=== PATIENT | male | born 1995 | race Two or more races ===

== ENCOUNTER 2018-11-28 04:03 | Emergency (ER) | payer SELFPAY ==
[2018-11-28] MEDS ORDERED: ACETAMINOPHEN 500 MG TABLET (FP) PO ONE (04:47)
[2018-11-28 04:49] VITALS: BP 122/88; PULSE 78; TEMP 98.1; BMI 18.3
--- NOTE | 2018-11-28 04:51 | PDOC ---
History of Present Illness - General Chief Complaint: Cold Symptoms Stated Complaint: SINUS,CHEST,THROAT PAIN Time Seen by Provider: 11/28/18 04:16 - History of Present Illness Initial Comments: Mr. Nava is a 23 y/o male with hx of spontaneous pneumothorax presenting today with nasal congestion, cough, and chest tightness. Reports that the nasal congestion started 3 days ago while he was in [place]. Reports coughing over the past day and subsequent chest tightness. Reports 1 day of fever that has resolved. Denies nausea/vomiting/hemoptysis. Denies abdominal pain or shortness of breath. Denies headache/dizziness. Past History - Past Medical History Allergies/Adverse Reactions: Allergies Allergy/AdvReac Type Severity Reaction Status Date / Time No Known Drug Allergies Allergy Verified 03/04/16 13:10 seafood Allergy Severe anaphylaxis Uncoded 03/04/16 13:10 Home Medications: Ambulatory Orders NK [No Known Home Medication] 11/28/18 COPD: No Other medical history: Pneumothorax - Suicide/Smoking/Psychosocial Hx Smoking Status: No Smoking History: Never smoked Have you smoked in the past 12 months: No Number of Cigarettes Smoked Daily: 1 If you are a former smoker, when did you quit?: 2014 Hx Alcohol Use: Yes (Social) Drug/Substance Use Hx: No Substance Use Type: None Review of Systems - Review of Systems Comments:: GENERAL/CONSTITUTIONAL: No fever or chills. No weakness._ HEAD, EYES, EARS, NOSE AND THROAT: No change in vision. No change in hearing. No sore throat. Reports runny nose. CARDIOVASCULAR: Reports chest pressure. Denies shortness of breath_ RESPIRATORY: Reports cough, denies hemoptysis_ GASTROINTESTINAL: No nausea, vomiting, diarrhea or constipation._ GENITOURINARY: No dysuria, frequency, or change in urination._ MUSCULOSKELETAL: No joint or muscle swelling or pain. No neck or back pain._ SKIN: No rash_ NEUROLOGIC: No headache, vertigo, loss of consciousness, or change in strength/ sensation._ ENDOCRINE: No increased thirst. No abnormal weight change_ HEMATOLOGIC/LYMPHATIC: No anemia, easy bleeding, or history of blood clots._ ALLERGIC/IMMUNOLOGIC: No hives or skin allergy._ *Physical Exam - Vital Signs Last Vital Signs Temp Pulse Resp BP Pulse Ox 98.1 F 78 19 122/88 100 11/28/18 04:24 11/28/18 04:24 11/28/18 04:24 11/28/18 04:24 11/28/18 04:24 - Physical Exam Comments: GENERAL: Awake, alert, and oriented to person/place/time, in no acute distress_ HEAD: No signs of trauma, normocephalic, atraumatic _ EYES: PERRLA, EOMI, sclera anicteric, conjunctiva clear_ ENT: Hearing grossly normal, nares patent, oropharynx clear without exudates. No uvular deviation. Moist mucosa_ NECK: Normal ROM, supple, no lymphadenopathy, JVD, or masses_ LUNGS: No distress, speaks in full sentences, clear to auscultation bilaterally _ HEART: Regular rate and rhythm, normal S1 and S2, no murmurs appreciated, peripheral pulses normal and equal bilaterally._ ABDOMEN: Soft, nontender, normoactive bowel sounds. No guarding, no rebound. No masses_ EXTREMITIES: Normal inspection, Normal range of motion, no edema. No clubbing or cyanosis_ NEUROLOGICAL: Cranial nerves II through XII grossly intact. Normal speech, normal gait, no focal sensorimotor deficits _ SKIN: Warm, Dry, normal turgor, no rashes or lesions noted_ ED Treatment Course - RADIOLOGY Radiology Studies Ordered: Category Date Time Status CHEST PA & LAT [RAD] Stat Radiology 11/28/18 04:46 Ordered Medical Decision Making - Medical Decision Making 23M, hx of pneumothorax, presenting with 3 days of rhinorrhea, 2 days of cough followed by chest discomfort. Obtain CXR given hx of pneumo. 11/28/18 05:08 CXR does not show any signs of pneumothorax or pneumonia. Plan to d/c home with OTC motrin for symptomatic relief. F/u PCP as needed. *DC/Admit/Observation/Transfer Diagnosis at time of Disposition: URI (upper respiratory infection) Qualifiers: URI type: unspecified URI Qualified Code(s): J06.9 - Acute upper respiratory infection, unspecified - Discharge Dispostion Disposition: HOME Condition at time of disposition: Stable - Referrals - Patient Instructions Printed Discharge Instructions: DI for Viral Upper Respiratory Infection -- Adult, DI for Common Cold Additional Instructions: Please take Motrin over the counter as needed for your symptoms (follow instructions on the package). Please make an appointment to follow up with your primary care physician as needed. If you experience any new, worsening, or concerning symptoms, including high fever, severe chest pain, shortness of breath, or any other concerns, please return to the emergency room. - Post Discharge Activity
[2018-11-28] MEDS ORDERED: ACETAMINOPHEN 325 MG TABLET (FP) ONE (04:52)
[2018-11-28] MEDS ORDERED: IBUPROFEN 600 MG TABLET (FP) PO ONE ×2 (04:53→04:54)
--- NOTE | 2018-11-28 05:04 | PDOC ---
Attending Attestation - Resident Resident Name: Negro Fernandez - HPI HPI: 11/28/18 05:01 23m hx spontaneous PTX years ago presents with cough, CP And SOB. Pt developed congestion, cough, and a sore throat 3 days ago while on vacation in [place]. This evening had worsening cough and chest pressure and became concerned he might have a pneumothorax again. No fevers. Vomited x 1. - Physicial Exam PE: 11/28/18 05:03 supine in stretcher sleeping quietly nasal congestion mmm tonsillar erythema, no exudates rrr s1 s2 no mrg ctab no wheezes rales rhonchi soft nt nd - Medical Decision Making 11/28/18 05:04 likely Viral URI afeb vss CXR to r/o ptx motrin prn discomfort dispo per CXR
== END 2018-11-28 05:20 | disposition home or self-care (01) ==
LOC: JER 04:03
DX: J06.9 Acute upper respiratory infection, unspecified (principal)
CPT/HCPCS: 71046-TC-FY; 99281-25

== ENCOUNTER 2019-01-21 08:56 | Emergency (ER) | payer SELFPAY ==
[2019-01-21 09:08] VITALS: BP 116/50; PULSE 83; TEMP 98.4; BMI 17.6
--- NOTE | 2019-01-21 09:14 | PDOC ---
History of Present Illness - General Chief Complaint: Cold Symptoms Stated Complaint: cough Time Seen by Provider: 01/21/19 09:06 - History of Present Illness Initial Comments: 01/21/19 09:14 CHIEF COMPLAINT: cough, chest pain HISTORY OF PRESENT ILLNESS: 23 yo M with hx of spontaneous pneumothorax (2014) presents to fast track with cough and chest discomfort. Patient reports 2 weeks of chest discomfort accompanied by a cough since 2 days ago, with hemoptysis last night. Denies any fever, chills, night sweats. Denies recent travel, surgery, or hormone use. No recent travel or sick contacts. PAST MEDICAL HISTORY: pneumothorax FAMILY HISTORY: Denies SOCIAL HISTORY: Former smoker, "quit after lung surgery in 2017". Reports smoking hookah and marijuana in the last few weeks. Denies alcohol, illicit drug use. SURGICAL HISTORY: chest tube placement 2014, thoracic surgery (wedge resection) 2016 ALLERGIES: seafood REVIEW OF SYSTEMS General/Constitutional: Denies fever, chills, night sweats. Denies weakness, weight change. HEENT: Denies change in vision. Denies ear pain or discharge. Denies sore throat. Cardiovascular: Shortness of breath x 2 weeks. Respiratory: Coughing x 2 days, hemoptysis last night. Gastrointestinal: Denies nausea, vomiting, diarrhea or constipation. Denies rectal bleeding. Genitourinary: Denies dysuria, frequency, or change in urination. Musculoskeletal: Denies joint or muscle swelling or pain. Denies neck or back pain. Skin and breasts: Denies rash or easy bruising. Neurologic: Denies headache, vertigo, loss of consciousness, or loss of sensation. Psychiatric: Denies depression or anxiety. PHYSICAL EXAM General Appearance: Well-appearing, appropriately dressed. No apparent distress , no intoxication. HEENT: EOMI, PERRLA, normal ENT inspection, normal voice, TMs normal, pharynx normal. No conjunctival pallor. No photophobia, scleral icterus. Neck: Supple. Trachea midline. No tenderness, rigidity, carotid bruit, stridor , lymphadenopathy, or thyromegaly. Respiratory/Chest: Lungs CTAB. No shortness of breath, chest tenderness, respiratory distress, accessory muscle use. No crackles, rales, rhonchi, stridor , wheezing, dullness Cardiovascular: RRR. S1, S2. No JVD, murmur, bradycardia, tachycardia. Vascular Pulses: Dorsalis-Pedis (R): 2+, Dorsalis-Pedis (L): 2+ Gastrointestinal/Abdominal: Normal bowel sounds. Abdomen soft, non-distended. No tenderness or rebound tenderness. No organomegaly, pulsatile mass, guarding , hernia, hepatomegaly, splenomegaly. Lymphatic: No adenopathy, tenderness. Musculoskeletal/Extremities: Normal inspection. FROM of all extremities, normal capillary refill. Pelvis Stable. No CVA tenderness. No tenderness to extremities, pedal edema, swelling, erythema or deformity. Integumentary: Appropriate color, dry, warm. No cyanosis, erythema, jaundice or rash Neurologic: continuous improvement specialist II-XII intact. Fully oriented, alert. Appropriate mood/affect. Motor strength 5/5. No appreciable EOM palsy, facial droop or sensory deficit. Past History - Past Medical History Allergies/Adverse Reactions: Allergies Allergy/AdvReac Type Severity Reaction Status Date / Time No Known Drug Allergies Allergy Verified 03/04/16 13:10 seafood Allergy Severe anaphylaxis Uncoded 03/04/16 13:10 Home Medications: Ambulatory Orders Ipratropium 0.02% Nebulizer [Atrovent *Nebulizer*] 0.5 mg IH Q6H #40 vial.neb. 01/21/19 COPD: No - Immunization History Immunization Up to Date: No - Psycho Social/Smoking Cessation Hx Smoking Status: No Smoking History: Never smoked Have you smoked in the past 12 months: No Number of Cigarettes Smoked Daily: 1 If you are a former smoker, when did you quit?: 2014 Information on smoking cessation initiated: No Hx Alcohol Use: No Drug/Substance Use Hx: No Substance Use Type: None *Physical Exam - Vital Signs Last Vital Signs Temp Pulse Resp BP Pulse Ox 98.4 F 83 18 116/50 L 100 01/21/19 09:01 01/21/19 09:01 01/21/19 09:01 01/21/19 09:01 01/21/19 09:01 ED Treatment Course - RADIOLOGY Radiology Studies Ordered: Category Date Time Status CHEST PA & LAT [RAD] Stat Radiology 01/21/19 09:08 Ordered Medical Decision Making - Medical Decision Making 01/21/19 09:23 23 yo M with hx of spontaneous pneumothorax (2014) presents to fast track with cough and chest discomfort Patient PERC negative. No risk factors for TB. -ekg done in triage, unremarkable -cxr Discussed CXR with radiologist MD Hernandes. Findings consistent with emphysema/COPD. -atrovent Advised patient to take medication as prescribed and follow up with pulmonology within the next week. Advised patient of signs and symptoms for return to ED. Patient verbalized understanding and agrees to plan. 01/21/19 10:05 Discharge - Discharge Information Problems reviewed: Yes Clinical Impression/Diagnosis: COPD (chronic obstructive pulmonary disease) Qualifiers: COPD type: emphysema Emphysema type: other Qualified Code(s): J43.8 - Other emphysema Condition: Stable Disposition: HOME - Admission No - Additional Discharge Information Prescriptions: Ipratropium 0.02% Nebulizer [Atrovent *Nebulizer*] 0.5 mg IH Q6H #40 vial.neb. - Follow up/Referral Referrals: Tommy Schaefer MD [Primary Care Provider] - Krishan Mcdaniel MD, MD [Staff Physician] - - Patient Discharge Instructions Patient Printed Discharge Instructions: DI for Chronic Obstructive Pulmonary Disease Additional Instructions: Please use nebulizer as prescribed. Follow up with your primary care doctor and pulmonology within the next week. If you develop any new or worsening symptoms, please return to the ER immediately. - Post Discharge Activity Work/Back to School Note: Back to Work
[2019-01-21] MEDS ORDERED: IPRATROPIUM BR 0.02% 0.5 MG/2.5 ML VIAL.NEB. NEB ONE ×2 (10:04→10:07)
--- NOTE | 2019-01-22 09:56 | EKG ---
Test Reason : Blood Pressure : / mmHG Vent. Rate : 074 BPM Atrial Rate : 074 BPM P-R Int : 152 ms QRS Dur : 090 ms QT Int : 368 ms P-R-T Axes : 075 083 068 degrees QTc Int : 408 ms NORMAL SINUS RHYTHM WITH SINUS ARRHYTHMIA NORMAL ECG WHEN COMPARED WITH ECG OF 04-MAR-2016 14:36, NONSPECIFIC T WAVE ABNORMALITY NO LONGER EVIDENT IN ANTERIOR LEADS Confirmed by CHRIS RANDHAWA, DAWIT ([id number]) on 01/22/2019 9:56:20 AM Referred By: Confirmed By:DAWIT PEREZ MD
== END 2019-01-21 10:24 | disposition home or self-care (01) ==
LOC: JERFT 08:56
PROC: 3E0F7GC Introduction of Other Therapeutic Substance into Respiratory Tract, Via Natural or Artificial Opening (ICD-10-PCS; principal; 2019-01-21)
DX: J43.8 Other emphysema (principal); Z91.013 Allergy to seafood; Z87.09 Personal history of other diseases of the respiratory system
CPT/HCPCS: 71046-TC-FY; 93005; 93010; 99282-25

== ENCOUNTER 2019-09-27 07:59 | Emergency (ER) | payer OTHER ==
[2019-09-27 08:07] VITALS: TEMP 97.9; BMI 18.3
[2019-09-27] MEDS ORDERED: SODIUM CHLORIDE 0.9% 500 ML INFUS.BAG IV ONE (08:34)
[2019-09-27] MEDS ORDERED: predniSONE 20 MG TABLET (UD) PO ONE (08:34)
[2019-09-27] MEDS ORDERED: FAMOTIDINE 20 MG/50 ML IVPB 20 MG/50 ML MG IVPB ONE ×2 (08:34→08:37)
[2019-09-27] MEDS ORDERED: predniSONE 20 MG TABLET (UD) ONE (08:36)
[2019-09-27 09:39] VITALS: BP 112/68; PULSE 82
== END 2019-09-27 10:05 | disposition home or self-care (01) ==
LOC: JER 07:59
PROC: 3E033GC Introduction of Other Therapeutic Substance into Peripheral Vein, Percutaneous Approach (ICD-10-PCS; principal; 2019-09-27)
DX: T78.40XA Allergy, unspecified, initial encounter (principal)
CPT/HCPCS: 99284-25

== ENCOUNTER 2019-11-18 12:17 | Emergency (ER) | payer OTHER ==
[2019-11-18 12:25] VITALS: TEMP 98.1; BMI 18.3
--- NOTE | 2019-11-18 12:25 | PDOC ---
Rapid Medical Evaluation Time Seen by Provider: 11/18/19 12:23 Medical Evaluation: Allergies Allergy/AdvReac Type Severity Reaction Status Date / Time No Known Drug Allergies Allergy Verified 11/18/19 12:21 seafood Allergy Severe anaphylaxis Uncoded 11/18/19 12:21 11/18/19 12:23 I have performed a brief in-person evaluation of this patient. CC: Chest tightness and SOB x3-4 days; PMHX spontaneous PTX PE: Lungs CTAB. RRR. No m/r/g. Orders: CXR, EKG, labs Patient to proceed to ED for further evaluation. Discharge Disposition - Diagnosis SOB (shortness of breath) - Referrals - Patient Instructions - Post Discharge Activity
--- NOTE | 2019-11-18 13:21 | PDOC ---
History of Present Illness <Sophie Pierre - Last Filed: 11/18/19 15:04> - General History Source: Patient - History of Present Illness Initial Comments: 11/18/19 13:26 24yo male with a PMH of spontaneous pneumothorax x2 s/p talc pleurodesis in ~2016 presents with 4 days of shortness of breath and one day of b/l upper back pain. States it feels like it did the last time he had a pneumothorax. Complains of aching upper back/shoulders, not radiating, associated with SOB and chest tightness. Denies chest pain. Denies heavy lifting. Also states he has felt like lying in bed for the past week since having an issue in his custody [place], thinks he is more stressed and eating and drinking less. HE woke up today and had clear vomit, and has been able to drink water afterward but is not hungry. ROS otherwise negative. ROS GENERAL/CONSTITUTIONAL: No fever or chills. HEAD, EYES, EARS, NOSE AND THROAT: No change in vision. No ear pain or discharge. No sore throat. CARDIOVASCULAR: No chest pain. +shortness of breath RESPIRATORY: No cough, wheezing, or hemoptysis. GASTROINTESTINAL: + nausea, vomiting. no diarrhea or constipation. GENITOURINARY: No dysuria, frequency, or change in urination. MUSCULOSKELETAL: shoulder and upper back pain SKIN: No rash NEUROLOGIC: No headache, vertigo, loss of consciousness, or change in strength/sensation. ENDOCRINE: No increased thirst. No abnormal weight change HEMATOLOGIC/LYMPHATIC: No anemia, easy bleeding, or history of blood clots. ALLERGIC/IMMUNOLOGIC: No hives or skin allergy. PE GENERAL: Awake, alert, and fully oriented, in no acute distress HEAD: No signs of trauma, normocephalic, atraumatic EYES: PERRLA, EOMI, sclera anicteric, conjunctiva clear ENT: Auricles normal inspection, hearing grossly normal, nares patent, oropharynx clear without exudates. Moist mucosa NECK: Normal ROM, supple, no lymphadenopathy, JVD, or masses LUNGS: No distress, speaks full sentences, clear to auscultation bilaterally, normal breath sounds in all lung candelaria HEART: Regular rate and rhythm, normal S1 and S2, no murmurs, rubs or gallops, peripheral pulses normal and equal bilaterally. ABDOMEN: Soft, nontender, normoactive bowel sounds. No guarding, no rebound. No masses EXTREMITIES : Normal inspection, Normal range of motion, no edema. No clubbing or cyanosis. NEUROLOGICAL: Cranial nerves II through XII grossly intact. Normal speech, normal gait, no focal sensorimotor deficits SKIN: Warm, Dry, normal turgor, no rashes or lesions noted Vital Signs Temp Pulse Resp BP Pulse Ox 98.1 F 100 H 20 130/70 100 11/18/19 12:22 11/18/19 12:22 11/18/19 12:22 11/18/19 12:22 11/18/19 12:22 MDM 24yo male with a PMH of spontaneous pneumothorax x2 s/p talc pleurodesis in ~2015 presents with 4 days of shortness of breath and one day of b/l upper back pain. Exam and vitals reassuring. Differential includes pneumothorax, pneumonia, musculoskeletal pain. -CXR -EKG -cardiac monitoring -oxygen 11/18/19 15:42 EKG: NSR, normal intervals, possible LAE, rightward axis, no ischemic changes CXR: wnl CT: Interval left apical pleural thickening with surgical sutures identified, as described above. Small biapical bulla are present The rest of the lung is clear without evidence of acute lung disease No enlarged mediastinal or hilar lymph nodes are identified. Patient reports feeling better after oxygen therapy. No pneumothorax identified on CT, and no evidence of any other acute pathology. Patient reports girlfriend recently traveled to [place], so will Covid-swab and DC home with return precautions and PCP f/u. Patient agrees to plan. <Francis Richmond - Last Filed: 11/18/19 15:47> - General Chief Complaint: Shortness of Breath Stated Complaint: CHEST PAIN Time Seen by Provider: 11/18/19 12:23 Past History <Sophie Pierre - Last Filed: 11/18/19 15:04> - Medical History COPD: No Other medical history: SPONTANOUS PNEMOTHORAX - Immunization History Immunization Up to Date: No - Psycho-Social/Smoking History Smoking Status: No Smoking History: Current some day smoker Have you smoked in the past 12 months: No Number of Cigarettes Smoked Daily: 1 If you are a former smoker, when did you quit?: 2014 Information on smoking cessation initiated: No - Substance Abuse Hx (Audit-C & DAST Scrn) How often the patient has a drink containing alcohol: Monthly or less Number of drinks the patient has on a typical day: 1 or 2 How often the patient has six or more drinks on one occasion: Never Score: In Men: 4 or > Positive; In Women: 3 or > Positive: 1 Screen Result (Pos requires Nsg. Audit-10AR): Negative In the last yr the pt used illegal drug/Rx for NonMed reason: No Score: Yes response is considered Positive: 0 Screen Result (Positive result requires Nsg. DAST-10): Negative <Francis Richmond - Last Filed: 11/18/19 15:47> - Medical History Allergies/Adverse Reactions: Allergies Allergy/AdvReac Type Severity Reaction Status Date / Time No Known Drug Allergies Allergy Verified 11/18/19 12:21 seafood Allergy Severe anaphylaxis Uncoded 11/18/19 12:21 Home Medications: Ambulatory Orders NK [No Known Home Medication] 09/27/19 *Physical Exam - Vital Signs Last Vital Signs Temp Pulse Resp BP Pulse Ox 98.1 F 75 16 106/78 100 11/18/19 12:22 11/18/19 15:00 11/18/19 15:00 11/18/19 15:00 11/18/19 15:00 <Sophie Pierre - Last Filed: 11/18/19 15:04> - Vital Signs Last Vital Signs Temp Pulse Resp BP Pulse Ox 98.1 F 100 H 20 130/70 100 11/18/19 12:22 11/18/19 12:22 11/18/19 12:22 11/18/19 12:22 11/18/19 12:22 <Francis Richmond - Last Filed: 11/18/19 15:47> Discharge - Discharge Information Problems reviewed: Yes - Admission No <Sophie Pierre - Last Filed: 11/18/19 15:04> - Discharge Information Problems reviewed: Yes <Francis Richmond - Last Filed: 11/18/19 15:47> - Discharge Information Clinical Impression/Diagnosis: Myalgia Condition: Improved Disposition: HOME - Follow up/Referral Referrals: Greg Chung MD [Staff Physician] - Joaquim Gee MD [Staff Physician] - Tommy Schaefer MD [Primary Care Provider] - Krishan Mcdaniel MD, MD [Staff Physician] - - Patient Discharge Instructions Patient Printed Discharge Instructions: DI for Shortness of Breath, DI for Muscle Weakness, [facility]Coronavirus Instructions, [facility] COVID- 19 Isolation Protocol Additional Instructions: 1) Please follow-up with your primary care doctor in the next 1-2 days. Please call tomorrow for for any urgent issues. Ldr Nurse have been provided for follow-up, please call today or tomorrow to arrange for follow-up given your prior pneumothorax status post VATS procedure 2) You were given a copy of the tests performed today. Please bring the results with you and review them with your primary care doctor. Your laboratory / imaging results were normal including Chest x ray, CT chest or EKG follow up on your covid 19 results 3) If you have any worsening of symptoms or any other concerns please return to the ED immediately. Return if worsening symptoms including fevers, headache, vomiting, visual or hearing disturbances, abdominal pain, chest pain/pressure, shortness of breath, bloody sputum, syncope, dehydration, inability to take thin gs by mouth/vomiting, altered mental status, or worsening concerning symptoms. 4) Please continue taking your home medications as directed. Stay well hydrated and rest adequately. Make an appointment. If you cannot follow-up with your primary care doctor please return to the ED - Post Discharge Activity Work/Back to School Note: Back to Work
--- NOTE | 2019-11-18 13:48 | PDOC ---
Attending Attestation - Resident Resident Name: Francis Richmond - ED Attending Attestation I have performed the following: I have examined & evaluated the patient, The case was reviewed & discussed with the resident, I agree w/resident's findings & plan - HPI HPI: 11/18/19 13:44 24 y/o male with PMH significant for spontaneous pneumothorax (2014) s/p VATs, seafood allergy and urticaria presenting with chest pain/sob, x 4 days and one day of b/l upper back pain and leg soreness. States it feels like it did the last time he had a pneumothorax. Complains of aching upper back/shoulders, not radiating, associated with SOB and chest tightness. Denies chest pain. Denies heavy lifting. Also states he has felt like lying in bed for the past week since having an issue in his custody [place], thinks he is more stressed and eating and drinking less. HE woke up today and had clear vomit, and has been able to drink water afterward but is not hungry. denies fall/trauma 11/18/19 13:44 - Physicial Exam PE: 11/18/19 13:45 Agree with the resident's HPI and PE as documented in the electronic medical record. NAD, well appearing, EOMI, PERRL, nl conjunctiva, anicteric; neck supple. lungs clear, RRR, abdomen soft nontender. no rebound, guarding. Back nontender. OSORIO x4, no focal neuro deficits. No peripheral edema. normal color for ethnicity, WWP. no calf tenderness - Medical Decision Making 11/18/19 13:46 Vital Signs Temp Pulse Resp BP Pulse Ox 98.1 F 100 H 20 130/70 100 11/18/19 12:22 11/18/19 12:22 11/18/19 12:22 11/18/19 12:22 11/18/19 12:22 vitals reviewed, unremarkable mild tachy which is very borderline 100 bpm. no distress normal sats on RA DDx SOB: ACS, PE, PTX, pulmonary edema, pleurisy, pneumonia, viral syndrome. effusion. Considered but clinically doubt based on HPI and PE: Low suspicion for pulmonary embolism or dissection. no active sob or chest pain. Interpreted by ED Physician: CXR (2 view): no acute abnormality: no infiltrates, bones appear intact and structures normal alignment, cardiac silhouette within normal limits. no free air under diaphragm, no pneumothorax. EKG normal sinus rhythm, no interval abnormalities, narrow QRS, ST and T wave segments and morphology normal. pocus lung neg for ptx, b/l lung sliding, A line profile and no effusion seen CT chest There is left apical pleural thickening with surgical sutures seen, consistent with his prior VATS. There is small biapical bullae present remainder of lungs clear without acute pulmonary disease. 11/18/19 14:37 pt reevaluated at the bedside with step father. pt given results as above, no acute findings. no events on monitor. still well appearing, no acute cp or sob. does admit to anxiety as he has been going through some familial stressors with custody of his son. he feels clinically improved and told he should f/u pulmonology covid swab given current pandemic situation 11/18/19 14:53 Pt to be discharged in stable condition. Patient and family made aware of clinical impression, treatment recommendations and disposition plan, return precautions discussed (including but not limited to new or persistent/worsening symptoms, pain, fevers, or signs of infection, chest pain, respiratory distress, inability to tolerate oral intake, dehydration, syncope, or neurologic changes). Follow up with PMD and/or specialist as recommended, follow up information provided, take medications as instructed for duration of time. continue with supportive care, avoid triggers and precipitants. All questions answered to patient's satisfaction and expressed understanding and comfort with this. At the time of discharge, the patient is alert, clinically improved, tolerating po and verbalizes understanding of instructions, satisfied with the care received and felt comfortable with the plan. Patient does not suffer from an acute life- threatening medical condition at this time and is safe for outpatient follow- up. 11/18/19 14:59 Heart Score/ECG Review #1 ECG reviewed & interpreted by me at: 13:10 General ECG Interpretation: Sinus Rhythm, Normal Rate, Normal Intervals 11/18/19 13:46 EKG normal sinus rhythm 82 bpm, no interval abnormalities, narrow QRS, ST and T wave segments and morphology normal. Discharge - Discharge Information Problems reviewed: Yes Clinical Impression/Diagnosis: Myalgia Condition: Improved Disposition: HOME - Admission No - Follow up/Referral Referrals: Tommy Schaefer MD [Primary Care Provider] - Krishan Mcdaniel MD, MD [Staff Physician] - Greg Chung MD [Staff Physician] - Joaquim Gee MD [Staff Physician] - - Patient Discharge Instructions Patient Printed Discharge Instructions: DI for Shortness of Breath, DI for Muscle Weakness, [facility] COVID-19 Isolation Protocol, [facility]- Coronavirus Instructions Additional Instructions: 1) Please follow-up with your primary care doctor in the next 1-2 days. Please call tomorrow for for any urgent issues. Roaster Operator have been provided for follow-up, please call today or tomorrow to arrange for follow-up given your prior pneumothorax status post VATS procedure 2) You were given a copy of the tests performed today. Please bring the results with you and review them with your primary care doctor. Your laboratory / imaging results were normal including Chest x ray, CT chest or EKG follow up on your covid 19 results 3) If you have any worsening of symptoms or any other concerns please return to the ED immediately. Return if worsening symptoms including fevers, headache, vomiting, visual or hearing disturbances, abdominal pain, chest pain/pressure, shortness of breath, bloody sputum, syncope, dehydration, inability to take things by mouth/vomiting, altered mental status, or worsening concerning symptoms. 4) Please continue taking your home medications as directed. Stay well hydrated and rest adequately. Make an appointment. If you cannot follow-up with your primary care doctor please return to the ED - Post Discharge Activity Vital Signs - Vital Signs Vital signs refused: No Pulse Rate: 75 Respiratory Rate: 16 Blood Pressure: 106/78 BP Location: Right Arm Blood Pressure position: Sitting
[2019-11-18 14:53] VITALS: BP 106/78
[2019-11-18 15:01] VITALS: PULSE 80
--- NOTE | 2019-11-19 09:23 | EKG ---
Test Reason : Blood Pressure : / mmHG Vent. Rate : 082 BPM Atrial Rate : 082 BPM P-R Int : 152 ms QRS Dur : 084 ms QT Int : 340 ms P-R-T Axes : 082 094 063 degrees QTc Int : 397 ms NORMAL SINUS RHYTHM POSSIBLE LEFT ATRIAL ENLARGEMENT RIGHTWARD AXIS BORDERLINE ECG WHEN COMPARED WITH ECG OF 21-JAN-2019 09:03, NO SIGNIFICANT CHANGE WAS FOUND Confirmed by Negro Reid MD ([id number]) on 11/19/2019 9:23:09 AM Referred By: Confirmed By:Negro Reid MD
== END 2019-11-18 15:12 | disposition home or self-care (01) ==
LOC: JER 12:17
DX: M79.10 Myalgia, unspecified site (principal)
CPT/HCPCS: 71046-TC-FY; 71250-TC; 93005; 93010; 99285-25; U0003

== ENCOUNTER 2022-04-11 17:08 | Emergency (ER) | payer OTHER ==
[2022-04-11 17:40] VITALS: BP 138/77; PULSE 67; RESP 18; TEMP 98.1; BMI 18.3
== END 2022-04-11 18:30 | disposition home or self-care (01) ==
LOC: JERFT 17:08 → JER 17:08 → JERFT 18:30
PROC: 0H9GXZZ Drainage of Left Hand Skin, External Approach (ICD-10-PCS; principal; 2022-04-11)
DX: L03.011 Cellulitis of right finger (principal)
CPT/HCPCS: 73130-TC-RT-FY; 99283-25

== ENCOUNTER 2022-07-31 12:47 | Emergency (ER) | payer OTHER ==
[2022-07-31 12:52] VITALS: BP 103/70; PULSE 111; RESP 18; TEMP 99.1; BMI 56.9
[2022-07-31] MEDS ORDERED: ACETAMINOPHEN 500 MG TABLET (FP) PO ONE (15:16)
[2022-07-31] MEDS ORDERED: ACETAMINOPHEN 500 MG TABLET (FP) ONE (15:36)
== END 2022-07-31 16:40 | disposition home or self-care (01) ==
LOC: JERFT 12:47
DX: S01.01XA Laceration without foreign body of scalp, initial encounter (principal); R07.81 Pleurodynia; Y04.0XXA Assault by unarmed brawl or fight, initial encounter
CPT/HCPCS: 71046-TC-FY; 71101-TC-LT-FY; 99283-25